=== PATIENT | female | born 1980 | race Caucasian/White ===

== ENCOUNTER 2017-04-13 13:41 | Emergency (ER) | payer OTHER ==
--- NOTE | ~2017-04-13 | EKG ---
PATIENT: GINGER VILLANUEVA UNIT #: [id number] Ventricular Rate: 95 BPM Atrial Rate: 95 BPM P-R Interval: 150 ms QRS Duration: 92 ms Q-T Interval: 354 ms QTC Calculation(Bezet): 444 ms P Bluebell: 66 degrees Calculated R Bluebell: 73 degrees Calculated T Bluebell: 40 degrees Diagnosis Line: Normal sinus rhythm Diagnosis Line: Biatrial enlargement Diagnosis Line: Incomplete right bundle branch block Diagnosis Line: Abnormal ECG Diagnosis Line: No previous ECGs available Diagnosis Line: Confirmed by ZAKIA BARNHART MD ([id number]) on Diagnosis Line: 04/20/2017 9:00:13 AM INTERPRETING MD: OBEY THAKUR
--- NOTE | ~2017-04-13 | CR72 ---
[facility] A Service of [facility] RADIOLOGY TEXT RESULTS PATIENT: GINGER VILLANUEVA LOCATION: SED : 78 UNIT #: [id number] AGE: [address]: Carlos Berrios MD SEX: F ORDER DR: [id number] [place] [id number] E MR#: [id number] Acc #: [id number] NAME: GINGER VILLANUEVA : 1980 SEX: F STUDY DATE/TIME: 04/13/2017 15:18 UNIT: SED ROOM: STUDY DESCRIPTION: CR Chest Single View Portable Attending Physician: Carlos Berrios M.D. Ordering Physician: Carlos Berrios M.D. Primary Care Physician: No Primary Care Physician MEDICAL IMAGING REPORT This report is preliminary unless electronic signature is present. EXAM Portable chest. DATE 04/13/2017 COMPARISON None. CLINICAL HISTORY Cough and chest tightness for a few days. FINDINGS A single AP portable view of the chest shows both lungs to be clear. The heart is normal in size. The mediastinal contour is normal. No significant bone abnormalities are seen. IMPRESSION Normal/negative portable chest. Dictated by... Ismael Taylor M.D. THIS IS AN ELECTRONICALLY VERIFIED REPORT Ismael Taylor M.D. at 04/18/2017 10:32 AM TOMASZ/antoni TD: 04/13/2017 20:24 JOB #: [id number] MEDICAL IMAGING REPORT [facility] A Service of [facility] RADIOLOGY TEXT RESULTS PATIENT: GINGER VILLANUEVA LOCATION: SED : 78 UNIT #: [id number] AGE: [address]: Carlos Berrios MD SEX: F ORDER DR: Page 1 of 1
[2017-04-13] MEDS ORDERED: NO MEDICATIONS (13:45)
[2017-04-13 14:55] LABS: BASOPHIL% 0.4 % (0-2.5); EOSINOPHIL% 0.4 % (0.0-7.0); HEMATOCRIT 50.2 % (35.0-45.0); HEMOGLOBIN 17.2 gm/dL (12.0-16.0); LYMPHOCYTE# 2.1 X10e3 (1.0-3.5); LYMPHOCYTE% 26.1 % (17.0-45.0); MEAN CELL VOLUME 90.1 FL (83-96); MEAN CORPUSCULAR HEMOGLOBIN 30.8 PG (28-34); MEAN CORPUSCULAR HGB CONC 34.2 g/dL (30-36); MEAN PLATELET VOLUME 7.7 FL (6.5-11.5); MONOCYTE# 0.5 X10e3 (0-1.0); MONOCYTE% 6.6 % (3.0-12.0); NEUTROPHIL# 5.4 X10e3 (1.5-7.1); NEUTROPHIL% 66.5 % (40-75); PLATELET COUNT 340 X10e3 (140-420); RED BLOOD COUNT 5.58 X10e (3.90-5.30); RED CELL DISTRIBUTION WIDTH 12.3 % (11.0-15.5); WHITE BLOOD COUNT 8.2 X10e3 (4.0-10.5)
[2017-04-13 14:56] LABS: URINE APPEARANCE CLEAR; URINE BILIRUBIN NEG (NEG); URINE BLOOD TRACE-INTACT (NEG); URINE COLOR YELLOW; URINE GLUCOSE NEG (NORM); URINE KETONE NEG (NEG); URINE LEUKOCYTE ESTERASE TRACE (NEG); URINE NITRATE NEG (NEG); URINE PH 5.5 (5-8); URINE PROTEIN NEG (NEG); URINE UROBILINOGEN 0.2 MG/DL (NORM)
[2017-04-13 15:01] LABS: DIFF IND NO
[2017-04-13 15:04] LABS: MICRO INDICATED? YES; URINE SOURCE CLEAN CATCH
[2017-04-13 15:05] LABS: CULTURE INDICATED? YES; URINE BACTERIA NEG (NEG); URINE RBC 0-2 /[HPF] (0-2); URINE TRANSITIONAL EPI CELLS OCCAS /[HPF]
[2017-04-13 15:06] LABS: AMPHETAMINE NEG (NEG); BARBITURATES NEG (NEG); BENZODIAZEPINES NEG (NEG); COCAINE NEG (NEG); MARIJUANA POS (NEG); OPIATES NEG (NEG); TRICYCLIC ANTIDEPRESSANTS NEG (NEG); U METHADONE NEG (NEG)
[2017-04-13 15:13] LABS: ALCOHOL BLOOD <5 mg/dL (0); ALKALINE PHOSPHATASE 93 U/L (32-92); ALT (SGPT) 23 U/L (10-40); AST (SGOT) 31 U/L (10-42); BILIRUBIN, DIRECT 0.2 mg/dL (0.0-0.2); BILIRUBIN,TOTAL 1.2 mg/dL (0.2-2.0); BLOOD UREA NITROGEN 16 mg/dL (9-23); BUN/CREATININE RATIO 26.66; CARBON DIOXIDE 24 mmol/L (22-31); CHLORIDE 103 mmol/L (100-111); CREATININE SERUM 0.6 mg/dL (0.6-1.4); GLOM FILT RATE Estimated 116.4 mL/min (>60); GLUCOSE FASTING 101 mg/dL (70-110); POTASSIUM 3.7 mmol/L (3.5-5.1); PROTEIN TOTAL SERUM 8.5 g/dL (6.0-8.3); SODIUM 139 mmol/L (135-145)
[2017-04-14 12:04] LABS: POC - TROPONIN <0.05 ng/mL (<=0.05)
== END 2017-04-13 15:59 | disposition home or self-care (01) ==
LOC: SED 13:41
PROVIDERS: Emergency Medicine
DX: R42 Dizziness and giddiness (principal); R53.1 Weakness; Z90.710 Acquired absence of both cervix and uterus; F17.210 Nicotine dependence, cigarettes, uncomplicated; I25.10 Atherosclerotic heart disease of native coronary artery without angina pectoris; J45.909 Unspecified asthma, uncomplicated
CPT/HCPCS: 36415; 71010; 80048; 80076; 80307; 81003; 82553; 82947; 84484; 85025; 87086; 93005; 96361; 96374; 96375; 99284; G0480; J1885; J2405